=== PATIENT | female | born 1985 | race American Indian/Alaskan Native ===

== ENCOUNTER 2020-08-29 22:42 | Inpatient (IN) | payer OTHER ==
--- NOTE | 2020-08-29 22:50 | Event Note ---
ED Screening Note Date of service: 08/29/20 Time: 22:49 ED Screening Note: Patient complains of sudden onset of shortness of breath and chest pain with deep inhalation History of asthma, however states this feels different Denies history of DVT/PE, leg pain/swelling, recent long travel, hemoptysis, or hormone use Heart rate 114 This initial assessment/diagnostic orders/clinical plan/treatment(s) is/are subject to change based on patients health status, clinical progression and re-assessment by fellow clinical providers in the ED. Further treatment and workup at subsequent clinical providers discretion. Patient/guardian urged not to elope from the ED as their condition may be serious if not clinically assessed and managed. Initial orders include: Labs EKG Chest x-ray
--- NOTE | 2020-08-29 23:13 | XRay Report ---
CHEST 2 VIEWS INDICATION: shortness of breath, chest pain. COMPARISON: None FINDINGS: SUPPORT DEVICES: None. HEART: Within normal limits. LUNGS/PLEURA: Mild patchy multifocal airspace disease. Correlate for potential atypical etiology such as viral disease No pneumothorax. ADDITIONAL FINDINGS: None. IMPRESSION: 1. Pulmonary findings as above. Signer Name: Gunnar Jones MD Signed: 08/29/2020 11:08 PM Workstation Name: [id number]
[2020-08-30 00:02] LABS: Alanine Aminotransferase 51 units/L (7-56); Albumin 3.9 g/dL (3.9-5); Blood Urea Nitrogen 12 mg/dL (7-17); Calcium 9.1 mg/dL (8.4-10.2); Hemolysis Index 3
[2020-08-30 00:07] LABS: Basophils # (Auto) 0.2 K/mm3 (0.0-0.1); Eosinophils % (Auto) 0.4 % (0.0-4.3); Hematocrit 35.9 % (30.3-42.9); Hemoglobin 11.5 gm/dl (10.1-14.3); Mean Corpuscular HGB Conc 32 % (30-34); Monocytes # (Auto) 0.4 K/mm3 (0.0-0.8); Monocytes % (Auto) 7.1 % (0.0-7.3); Platelet Count 365 K/mm3 (140-440); Red Blood Count 5.42 M/mm3 (3.65-5.03); Red Cell Distribution Width 19.1 % (13.2-15.2)
[2020-08-30 00:10] LABS: Mean Corpuscular Volume 66 fl (79-97)
[2020-08-30 00:11] LABS: Lymphocytes # (Auto) 2.7 K/mm3 (1.2-5.4); Lymphocytes % (Auto) 44.7 % (13.4-35.0)
[2020-08-30 00:17] LABS: BUN/Creatinine Ratio 24
[2020-08-30] MEDS ORDERED: dexAMETHasone 20 MG/5 ML VIAL IV ONE (01:16)
[2020-08-30] MEDS ORDERED: cefTRIAXone/NS 1 GM/50 ML 1 GM/50 ML BAG IV ONE (01:17)
[2020-08-30] MEDS ORDERED: AZITHROMYCIN 500 MG in SODIUM CHLORIDE 0.9% 250ML 250 ML IV ONE (01:17)
--- NOTE | 2020-08-30 01:31 | Emergency Department Report ---
ED General Adult HPI - General Chief complaint: Dyspnea/Respdistress Stated complaint: SHORTNESS OF BREATH Time Seen by Provider: 08/29/20 22:48 Source: patient Mode of arrival: Ambulatory Limitations: No Limitations - History of Present Illness Initial comments: 35-year-old -[place] female patient with history of diabetes and asthma presents for sudden onset of shortness of breath starting last night and worsening today. She states this feels different from her normal asthma. She admits to a mild cough with mucus production, but denies any hemoptysis. She also complains of chest pain with deep inspiration. Patient denies any leg pain/swelling, recent long travel/surgeries, history of DVT/PE/cancer, or hormone use. No known recent sick contacts per patient - Related Data Allergies Allergy/AdvReac Type Severity Reaction Status Date / Time No Known Allergies Allergy Unverified 08/29/20 22:50 ED Review of Systems ROS: Stated complaint: SHORTNESS OF BREATH Other details as noted in HPI ED Past Medical Hx - Past Medical History Previous Medical History?: Yes Hx Diabetes: Yes Hx Arthritis: Yes - Social History Smoking Status: Never Smoker Substance Use Type: None ED Physical Exam - General Limitations: No Limitations ED Course Vital Signs 08/29/20 08/29/20 22:47 22:51 Temperature 99.4 F Pulse Rate 110 H Respiratory 20 Rate Blood Pressure 125/78 [Right] O2 Sat by Pulse 100 Oximetry ED Medical Decision Making - Lab Data Result diagrams: 08/29/20 23:13 08/29/20 23:13 - Radiology Data Radiology results: report reviewed CHEST 2 VIEWS INDICATION: shortness of breath, chest pain. COMPARISON: None FINDINGS: SUPPORT DEVICES: None. HEART: Within normal limits. LUNGS/PLEURA: Mild patchy multifocal airspace disease. Correlate for potential atypical etiology such as viral disease No pneumothorax. ADDITIONAL FINDINGS: None. IMPRESSION: 1. Pulmonary findings as above. - Medical Decision Making 35-year-old -[place] female patient with history of diabetes and asthma presents for sudden onset of shortness of breath starting last night and worsening today. She states this feels different from her normal asthma. She admits to a mild cough with mucus production, but denies any hemoptysis. She also complains of chest pain with deep inspiration. Patient denies any leg pain/swelling, recent long travel/surgeries, history of DVT/PE/cancer, or hormone use. No known recent sick contacts per patient Chest x-ray shows mild patchy multifocal airway disease that appears to be of viral etiology. White count is normal CBC. Patient is satting at 95% on room air, however with ambulation her saturation drops to 87% and her heart rate inc reases to [address] Elizabeth-recommends admission. Covid testing ordered. Patient to be admitted via Dr. Francois. Critical care attestation.: If time is entered above; I have spent that time in minutes in the direct care of this critically ill patient, excluding procedure time. ED Disposition Clinical Impression: Suspected COVID-19 virus infection, Hypoxia, Shortness of breath Disposition: OP ADMIT IP TO THIS HOSP Is pt being admited?: Yes Condition: Stable Referrals: EUGENIA CHILDS MD [Primary Care Provider] - 3-5 Days
[2020-08-30] MEDS ORDERED: dexAMETHasone 20 MG/5 ML VIAL ONE ×2 (03:41→08:59)
[2020-08-30 06:47] LABS: C-Reactive Protein 4.7 mg/dL (0.00-1.30)
--- NOTE | 2020-08-30 07:39 | History and Physical Report ---
History of Present Illness Date of examination: 08/30/20 Date of admission: 08/30/20 Chief complaint: Shortness of breath History of present illness: Patient is a 35-year-old -Finnish female patient with history of diabetes and asthma although has not been on any asthma medication due to no exacerbation years only takes Metformin at home she is also morbidly obese who presents following a 2-day history of intermittent cough with now worsening shortness of breath which started suddenly while at work. She works at [employer]. She states this feels different from her normal asthma. She admits to a mild cough with mucus production, but denies any hemoptysis. She also complains of chest pain with deep inspiration. She also reports difficulty with speech. Patient denies any leg pain/swelling, recent long travel/surgeries, history of DVT/PE/cancer, or hormone use. No known recent sick contacts per patient Chest x-ray shows mild patchy multifocal airway disease that appears to be of viral etiology. White count is normal CBC. Patient is satting at 95% on room air, however with ambulation her saturation drops to 87% and her heart rate increases to [address] Elizabeth-recommends admission. Covid testing ordered. Past History Past Medical History: diabetes, other (Patient's respiratory status has stabilized while in the department and is appropriate for outpatient work up.Exam and work up not consistent w/ impending respiratory failure or cardiovascular collapse.) Past Surgical History: (X3) Social history: no significant social history, lives with family, full code. denies: smoking, alcohol abuse, prescription drug abuse, IV drug use Family history: no significant family history Medications and Allergies Allergies Allergy/AdvReac Type Severity Reaction Status Date / Time No Known Allergies Allergy Unverified 08/29/20 22:50 Review of Systems All systems: negative Constitutional: fatigue, no weight loss, no weight gain, no fever, no weakness, no malaise, no lethargy Cardiovascular: shortness of breath, no chest pain, no orthopnea, no palpitatio ns, no rapid/irregular heart beat, no edema, no syncope, no lightheadedness Respiratory: cough with sputum, shortness of breath, dyspnea on exertion, no congestion, no wheezing, no pleurisy, no pain, no pain on inspiration, no sleep apnea, no respiratory infections Exam - Physical Exam Narrative exam: VITAL SIGNS: Reviewed. GENERAL: The patient appears normally developed, morbidly obese vital signs as documented. HEAD: No signs of head trauma. EYES: Pupils are equal. Extraocular motions intact. EARS: Hearing grossly intact. MOUTH: Oropharynx is normal. NECK: No adenopathy, no JVD. CHEST: Chest with diminished breath sounds bilaterally. No wheezes, rales, or rhonchi. CARDIAC: Regular rate and rhythm. S1 and S2, without murmurs, gallops, or rubs. VASCULAR: No Edema. Peripheral pulses normal and equal in all extremities. ABDOMEN: Soft, non tender and non distended. No rebound or guarding, and no masses palpated. Bowel Sounds normal. MUSCULOSKELETAL: Good range of motion of all major joints. Extremities without clubbing, cyanosis or edema. NEUROLOGIC EXAM: Alert and oriented x 3 No focal sensory or strength deficits. Speech normal. Follows commands. PSYCHIATRIC: Mood normal. SKIN: detail exam as documented in skin assessment - Constitutional Vitals: Temp Pulse Resp BP Pulse Ox 99.4 F 110 H 20 125/78 100 08/29/20 22:47 08/29/20 22:47 08/29/20 22:47 08/29/20 22:51 08/29/20 22:47 HEART Score - HEART Score Troponin: Troponin T < 0.010 ng/mL (0.00-0.029) 08/29/20 23:13 Results - Labs CBC & Chem 7: 08/29/20 23:13 08/29/20 23:13 Labs: Laboratory Last Values WBC 6.1 K/mm3 (4.5-11.0) 08/29/20 23:13 RBC 5.42 M/mm3 (3.65-5.03) H 08/29/20 23:13 Hgb 11.5 gm/dl (10.1-14.3) 08/29/20 23:13 Hct 35.9 % (30.3-42.9) 08/29/20 23:13 MCV 66 fl (79-97) L 08/29/20 23:13 MCH 21 pg (28-32) L 08/29/20 23:13 MCHC 32 % (30-34) 08/29/20 23:13 RDW 19.1 % (13.2-15.2) H 08/29/20 23:13 Plt Count 365 K/mm3 (140-440) 08/29/20 23:13 Lymph % (Auto) 44.7 % (13.4-35.0) H 08/29/20 23:13 Falls % (Auto) 7.1 % (0.0-7.3) 08/29/20 23:13 Eos % (Auto) 0.4 % (0.0-4.3) 08/29/20 23:13 Baso % (Auto) 3.0 % (0.0-1.8) H 08/29/20 23:13 Lymph # (Auto) 2.7 K/mm3 (1.2-5.4) 08/29/20 23:13 Falls # (Auto) 0.4 K/mm3 (0.0-0.8) 08/29/20 23:13 Eos # (Auto) 0.0 K/mm3 (0.0-0.4) 08/29/20 23:13 Baso # (Auto) 0.2 K/mm3 (0.0-0.1) H 08/29/20 23:13 Seg Neutrophils % 44.8 % (40.0-70.0) 08/29/20 23:13 Seg Neutrophils # 2.7 K/mm3 (1.8-7.7) 08/29/20 23:13 D-Dimer 310.03 ng/mlDDU (0-234) H 08/30/20 06:06 Sodium 139 mmol/L (137-145) 08/29/20 23:13 Potassium 4.5 mmol/L (3.6-5.0) 08/29/20 23:13 Chloride 98.6 mmol/L (98-107) 08/29/20 23:13 Carbon Dioxide 27 mmol/L (22-30) 08/29/20 23:13 Anion Gap 18 mmol/L 08/29/20 23:13 BUN 12 mg/dL (7-17) 08/29/20 23:13 Creatinine 0.5 mg/dL (0.6-1.2) L 08/29/20 23:13 Estimated GFR > 60 ml/min 08/29/20 23:13 BUN/Creatinine Ratio 24 % 08/29/20 23:13 Glucose 104 mg/dL (65-100) H 08/29/20 23:13 Calcium 9.1 mg/dL (8.4-10.2) 08/29/20 23:13 Ferritin 69.1 ng/mL (10.0-200.0) 08/30/20 06:06 Total Bilirubin 0.20 mg/dL (0.1-1.2) 08/29/20 23:13 AST 84 units/L (5-40) H 08/29/20 23:13 ALT 51 units/L (7-56) 08/29/20 23:13 Alkaline Phosphatase 113 units/L (35-129) 08/29/20 23:13 Lactate Dehydrogenase 237 units/L (91-180) H 08/30/20 06:06 Troponin T < 0.010 ng/mL (0.00-0.029) 08/29/20 23:13 C-Reactive Protein 4.70 mg/dL (0.00-1.30) H 08/30/20 06:06 NT-Pro-B Natriuret Pep 5.98 pg/mL (0-450) 08/29/20 23:13 Total Protein 8.0 g/dL (6.3-8.2) 08/29/20 23:13 Albumin 3.9 g/dL (3.9-5) 08/29/20 23:13 Albumin/Globulin Ratio 1.0 % 08/29/20 23:13 HCG, Qual Negative (Negative) 08/29/20 23:13 Assessment and Plan Assessment and plan: Patient is a 35-year-old -F[place]ish female patient with history of diabetes and asthma although has not been on any asthma medication due to no exacerbation years only takes Metformin at home she is also morbidly obese who presents following a 2-day history of intermittent cough with now worsening shortness of breath which started suddenly while at work. She works at [employer]. She states this feels different from her normal asthma. She admits to a mild cough with mucus production, but denies any hemoptysis. She also complains of chest pain with deep inspiration. She also reports difficulty with speech. Pat ient denies any leg pain/swelling, recent long travel/surgeries, history of DVT/PE/cancer, or hormone use. No known recent sick contacts per patient Chest x-ray shows mild patchy multifocal airway disease that appears to be of viral etiology. White count is normal CBC. Patient is satting at 95% on room air, however with ambulation her saturation drops to 87% and her heart rate increases to [address]. [address] Elizabeth-recommends admission. Covid testing ordered. CXR: SUPPORT DEVICES: None. HEART: Within normal limits. LUNGS/PLEURA: Mild patchy multifocal airspace disease. Correlate for potential atypical etiology such as viral disease No pneumothorax. ADDITIONAL FINDINGS: None. IMPRESSION: 1. Pulmonary findings as above. Acute respiratory failure likely with hypoxia secondary to acute bronchitis Suspected COVID-19 virus infection, Atypical pneumonia possible viral Elevated D-dimer Morbidly obese Plan Admit to [facility] floor Oxygen per protocol Duo nebs for asthma Patient has received some steroid today Rule out COVID-19 with testing Weight loss counseling greater than 15 minutes patient verbalized understanding Outpatient obesity hypoventilation syndrome evaluation with sleep study ABG Inhaled corticosteroids and long-acting nebs ID consultation If no improvement consider pulmonary consultation Daily oxygen saturation level on room air. Plan of care discussed with the patient in detail Advance Directives: Yes Plan of care discussed with patient/family: Yes
[2020-08-30] MEDS ORDERED: ACETAMINOPHEN 325 MG TAB PO PRN (07:57)
[2020-08-30] MEDS ORDERED: NALOXONE 0.4 MG/1 ML INJ IV PRN (07:57)
[2020-08-30] MEDS ORDERED: ONDANSETRON 4 MG/2 ML INJ IV PRN (07:57)
[2020-08-30] MEDS ORDERED: DEXTROSE 50% IN WATER (25GM) 50 ML SYRINGE IV PRN (07:57)
[2020-08-30] MEDS ORDERED: MORPHINE 2 MG/1 ML INJ IV PRN (07:57)
[2020-08-30] MEDS ORDERED: ALBUTEROL 2.5 MG/3 ML NEBU IH PRN (07:57)
[2020-08-30] MEDS ORDERED: AZITHROMYCIN 500 MG in SODIUM CHLORIDE 0.9% 250ML 250 ML IV SCH (10:00)
[2020-08-30] MEDS ORDERED: cefTRIAXone/NS 2 GM/100 ML 2 GM/100 ML BAG IV SCH (10:00)
[2020-08-30] MEDS ORDERED: BUDESONIDE 0.5 MG/2 ML NEBU IH ONE ×2 (10:46→20:41)
[2020-08-30] MEDS ORDERED: ARFORMOTEROL 15 MCG/2 ML NEBU IH ONE ×2 (10:46→20:41)
[2020-08-30] MEDS: ZINC SULFATE 220 MG CAP PO SCH (10:55)
[2020-08-30] MEDS: SENNOSIDES 8.6 MG TAB PO SCH (10:55)
[2020-08-30] MEDS: ASCORBIC ACID 500 MG TAB PO SCH (10:55)
[2020-08-30] MEDS: BUDESONIDE 0.5 MG/2 ML NEBU IH SCH ×2 (11:46→22:35)
[2020-08-30] MEDS: ARFORMOTEROL 15 MCG/2 ML NEBU IH SCH ×2 (11:46→22:35)
[2020-08-30] MEDS: IPRATROPIUM/ALBUTEROL SULFATE 3 ML AMPUL.NEB IH SCH ×3 (11:50→22:35)
[2020-08-30 13:07] LABS: ABG Base Excess -1.2 mmol/L (-2.0-3.0); ABG HCO3 23.4 mmol/L (20.0-26.0); ABG Methemoglobin 0.5 % (0.0-1.5); ABG PCO2 38.7 mm Hg; ABG PH 7.399 pH Units (7.350-7.450); ABG PO2 90.2 mm Hg (80.0-90.0)
[2020-08-30] MEDS ORDERED: HEPARIN 5,000 UNIT/1 ML VIAL ONE ×2 (16:08→23:30)
[2020-08-30] MEDS: HEPARIN 5,000 UNIT/1 ML VIAL SUB-Q SCH ×2 (16:14→23:40)
--- NOTE | 2020-08-30 16:27 | Consultation ---
History of Present Illness - Reason for Consult Consult date: 08/30/20 - History of Present Illness 35-year-old female past medical history diabetes,, asthma morbid obesity presents to the hospital complaining of cough and shortness of breath. She notes this began approximately 2 days prior to admission and has been progressively worse since then. She complains of a pleuritic pain on deep inspiration. Otherwise denies any other symptoms. Afebrile since admission with a normal white count. Currently seeing ceftriaxone azithromycin. Procalcitonin is normal. Blood cultures currently pending, COVID-19 testing is positive. She is on 2 L nasal cannula. Imaging personally viewed: Chest x-ray: Multifocal airspace disease. Review of Systems: Bold if positive, otherwise negative General: fevers, chills, rigors HEENT: visual disturbance, diplopia, eye pain Respiratory: cough, sputum, hemoptysis, shortness of breath Cardiovascular: chest pain, syncope Gastrointestinal: nausea, vomiting, diarrhea, abdominal pain Genitourinary: dysuria, hematuria, flank pain Musculoskeletal: neck pain, back pain, joint pain, edema Neurologic: headaches, seizures Hematologic: easy bruising or bleeding Endocrine: night sweats, acute weight loss Skin: rash, jaundice, redness Psychiatric: suicidal, homicidal ideation Past History Past Medical History: diabetes, other (Patient's respiratory status has stab ilized while in the department and is appropriate for outpatient work up.Exam and work up not consistent w/ impending respiratory failure or cardiovascular collapse.) Past Surgical History: (X3) Social history: no significant social history, lives with family, full code. denies: smoking, alcohol abuse, prescription drug abuse, IV drug use Family history: no significant family history Medications and Allergies Allergies Allergy/AdvReac Type Severity Reaction Status Date / Time No Known Allergies Allergy Unverified 08/29/20 22:50 Active Meds: Active Medications Acetaminophen (Tylenol) 650 mg PO Q4H PRN PRN Reason: Pain MILD(1-3)/Fever >100.5/WARREN Albuterol (Proventil) 2.5 mg IH Q4HRT PRN PRN Reason: Shortness Of Breath Albuterol/Ipratropium (Duoneb *Not For Prn Use*) 1 ampul IH Q6HRT [facility] Last Admin: 08/30/20 11:50 Dose: Not Given Documented by: Arformoterol Tartrate (Brovana Nebu) 15 mcg IH Q12HRT [facility] Last Admin: 08/30/20 11:46 Dose: 15 mcg Documented by: Ascorbic Acid (Vitamin C) 1,000 mg PO BID [facility] Last Admin: 08/30/20 10:55 Dose: 1,000 mg Documented by: Budesonide (Pulmicort) 0.5 mg IH Q12HRT [facility] Last Admin: 08/30/20 11:46 Dose: 0.5 mg Documented by: Dexamethasone (Decadron) 6 mg PO DAILY [facility] Dextrose (D50w (25gm) Syringe) 50 ml IV Q30MIN PRN; Protocol PRN Reason: Hypoglycemia Heparin Sodium (Porcine) (Heparin) 5,000 unit SUB-Q Q8HR [facility] Last Admin: 08/30/20 16:14 Dose: 5,000 unit Documented by: Ceftriaxone Sodium (Rocephin/Ns 2 Gm/100 Ml) 2 gm in 100 mls @ 200 mls/hr IV Q24HR [facility]; Protocol Last Admin: 08/30/20 15:29 Dose: Not Given Documented by: Azithromycin 500 mg/ Sodium (Chloride) 250 mls @ 250 mls/hr IV Q24HR [facility]; Protocol Last Admin: 08/30/20 11:38 Dose: Not Given Documented by: Morphine Sulfate (Morphine) 2 mg IV Q4H PRN PRN Reason: Pain, Moderate (4-6) Naloxone HCl (Naloxone) 0.1 mg IV Q2MIN PRN PRN Reason: Res Rate </= 8 or 02 SAT < 92% Ondansetron HCl (Zofran) 4 mg IV Q8H PRN PRN Reason: Nausea And Vomiting Senna (Senokot) 8.6 mg PO Q12HR [facility] Last Admin: 08/30/20 10:55 Dose: 8.6 mg Documented by: Sodium Chloride (Sodium Chloride Flush Syringe 10 Ml) 10 ml IV BID [facility] Last Admin: 08/30/20 10:58 Dose: 10 ml Documented by: Sodium Chloride (Sodium Chloride Flush Syringe 10 Ml) 10 ml IV PRN PRN PRN Reason: LINE FLUSH Zinc Sulfate (Zinc Sulfate) 220 mg PO QDAY [facility] Last Admin: 08/30/20 10:55 Dose: 220 mg Documented by: Physical Examination - Physical Exam Narrative exam: Physical exam deferred due to PPE conservation strategy. Please refer to primary team's note. - Constitutional Vitals: Vital Signs Temp Pulse Resp BP Pulse Ox 98.8 F 96 H 16 126/69 95 08/30/20 11:46 08/30/20 14:46 08/30/20 15:16 08/30/20 15:16 08/30/20 14:46 Temperature -Last 24 Hours Temperature 98.8 F Temperature 99.4 F Results - Labs CBC & Chem 7: 08/29/20 23:13 08/29/20 23:13 Labs: Abnormal lab results 08/29/20 08/29/20 08/30/20 Range/Units 23:13 23:13 06:06 RBC 5.42 H (3.65-5.03) M/mm3 MCV 66 L (79-97) fl MCH 21 L (28-32) pg RDW 19.1 H (13.2-15.2) % Lymph % (Auto) 44.7 H (13.4-35.0) % Baso % (Auto) 3.0 H (0.0-1.8) % Baso # (Auto) 0.2 H (0.0-0.1) K/mm3 D-Dimer 310.03 H (0-234) ng/mlDDU ABG pO2 (80.0-90.0) mm Hg Creatinine 0.5 L (0.6-1.2) mg/dL Glucose 104 H (65-100) mg/dL POC Glucose (70-105) mg/dL Hemoglobin A1c (4-6) % AST 84 H (5-40) units/L Lactate Dehydrogenase (91-180) units/L C-Reactive Protein (0.00-1.30) mg/dL Coronavirus (PCR) (Negative) 08/30/20 08/30/20 08/30/20 Range/Units 06:06 08:55 10:22 RBC (3.65-5.03) M/mm3 MCV (79-97) fl MCH (28-32) pg RDW (13.2-15.2) % Lymph % (Auto) (13.4-35.0) % Baso % (Auto) (0.0-1.8) % Baso # (Auto) (0.0-0.1) K/mm3 D-Dimer (0-234) ng/mlDDU ABG pO2 (80.0-90.0) mm Hg Creatinine (0.6-1.2) mg/dL Glucose (65-100) mg/dL POC Glucose (70-105) mg/dL Hemoglobin A1c 6.6 H (4-6) % AST (5-40) units/L Lactate Dehydrogenase 237 H (91-180) units/L C-Reactive Protein 4.70 H (0.00-1.30) mg/dL Coronavirus (PCR) Positive A (Negative) 08/30/20 08/30/20 08/30/20 Range/Units 11:05 12:38 Unknown RBC (3.65-5.03) M/mm3 MCV (79-97) fl MCH (28-32) pg RDW (13.2-15.2) % Lymph % (Auto) (13.4-35.0) % Baso % (Auto) (0.0-1.8) % Baso # (Auto) (0.0-0.1) K/mm3 D-Dimer 306.07 H (0-234) ng/mlDDU ABG pO2 90.2 H (80.0-90.0) mm Hg Creatinine (0.6-1.2) mg/dL Glucose (65-100) mg/dL POC Glucose 108 H (70-105) mg/dL Hemoglobin A1c (4-6) % AST (5-40) units/L Lactate Dehydrogenase (91-180) units/L C-Reactive Protein (0.00-1.30) mg/dL Coronavirus (PCR) (Negative) Assessment and Plan Cultures: Blood culture 08/30/2020 pending COVID-19 positive A/P: 35-year-old female past medical history diabetes, morbid obesity admitted with COVID-19 pneumonia. #COVID-19 pneumonia: 3 days of symptoms, currently a remdesivir candidate. #Acute hypoxemic respiratory failure: Likely secondary to COVID-19 infection. Currently on 2 L nasal cannula #Diabetes: tight glycemic control for best outcomes. #Morbid obesity: Associated with worse COVID-19 outcomes. Recs: -Continue dexamethasone for 10 days -Stop antibiotics on the basis of normal procalcitonin -Start Remdesivir 200 mg IV q day x 1 followed by 100 mg IV q day x 4 days. Follow renal and hepatic function while receiving -Anticoagulation per hospital protocol -Proning as able. Thank you for the consult, we will continue to follow. Margot Salmon MD [facility] ([facility] O: [phone] F: [phone]
--- NOTE | 2020-08-30 17:32 | Cat Scan Report ---
CTA CHEST WITH IV CONTRAST INDICATION: Pulmonary embolism. TECHNIQUE: Axial CT images were obtained through the chest after injection of 100 cc Omnipaque 350 IV contrast. 3 plane MIP reconstructions were produced. All CT scans at this location are performed using CT dose reduction for ALARA by means of automated exposure control. COMPARISON: 2 views of the chest from 08/29/2020. FINDINGS: Motion artifact limits this exam. PULMONARY ARTERIES: Good opacification of the pulmonary arteries without distinct central thromboembo li. AORTA AND ARTERIES: No significant abnormality. HEART: No significant abnormality. MEDIASTINUM: No significant abnormality. LUNGS: Patchy bilateral groundglass opacities/consolidations are noted without a suspicious nodule or mass. No pneumothorax or pleural effusion. ADDITIONAL FINDINGS: None. UPPER ABDOMEN: No acute findings. There is generalized steatosis. BONES: No acute abnormality. Mild thoracic spondylosis. IMPRESSION: 1. No CT evidence for pulmonary embolism. 2. Possible bilateral pneumonia versus atelectasis. Please correlate with the clinical findings. Cont inued radiographic follow-up to resolution is recommended. Signer Name: Alexi Potter MD Signed: 08/30/2020 5:27 PM Workstation Name: [id number]
[2020-08-30] MEDS ORDERED: REMDESIVIR 100 MG VIAL IV ONE (18:00)
[2020-08-30] MEDS ORDERED: REMDESIVIR 200 MG in SODIUM CHLORIDE 0.9% 250ML 250 ML IV ONE (18:00)
[2020-08-30] MEDS ORDERED: SODIUM CHLORIDE 0.9% 50 ML ONE (19:47)
[2020-08-30] MEDS ORDERED: IPRATROPIUM/ALBUTEROL SULFATE 3 ML AMPUL.NEB IH ONE (20:41)
[2020-08-30] MEDS: SODIUM CHLORIDE 0.9% 50 ML IVPB IV SCH (20:49)
[2020-08-31] MEDS: ASCORBIC ACID 500 MG TAB PO SCH ×3 (01:26→23:15)
[2020-08-31] MEDS: SENNOSIDES 8.6 MG TAB PO SCH ×3 (01:26→23:15)
[2020-08-31] MEDS: IPRATROPIUM/ALBUTEROL SULFATE 3 ML AMPUL.NEB IH SCH ×6 (03:25→21:30)
[2020-08-31 05:27] LABS: Basophils % (Auto) 0.5 % (0.0-1.8); Hematocrit 34.2 % (30.3-42.9); Hemoglobin 11.1 gm/dl (10.1-14.3); Lymphocytes # (Auto) 1.8 K/mm3 (1.2-5.4); Lymphocytes % (Auto) 50.5 % (13.4-35.0); Mean Corpuscular HGB Conc 33 % (30-34); Monocytes # (Auto) 0.4 K/mm3 (0.0-0.8); Monocytes % (Auto) 11.7 % (0.0-7.3); Platelet Count 333 K/mm3 (140-440); Red Blood Count 5.07 M/mm3 (3.65-5.03); Red Cell Distribution Width 19.6 % (13.2-15.2)
[2020-08-31 05:30] LABS: Mean Corpuscular Volume 68 fl (79-97)
[2020-08-31 06:01] LABS: ABG Base Excess 0.1 mmol/L (-2.0-3.0); ABG HCO3 25.2 mmol/L (20.0-26.0); ABG Methemoglobin 0.5 % (0.0-1.5); ABG Oxygen Saturation 96.5 % (95.0-99.0); ABG PCO2 42.5 mm Hg; ABG PH 7.39 pH Units (7.350-7.450); ABG PO2 81.9 mm Hg (80.0-90.0)
[2020-08-31] MEDS ORDERED: HEPARIN 5,000 UNIT/1 ML VIAL ONE ×2 (06:01→15:05)
[2020-08-31] MEDS: HEPARIN 5,000 UNIT/1 ML VIAL SUB-Q SCH ×3 (06:20→23:16)
[2020-08-31 07:05] LABS: BUN/Creatinine Ratio 20; Blood Urea Nitrogen 8 mg/dL (7-17); Hemolysis Index 28
[2020-08-31] MEDS ORDERED: IPRATROPIUM/ALBUTEROL SULFATE 3 ML AMPUL.NEB IH ONE (08:35)
[2020-08-31] MEDS ORDERED: BUDESONIDE 0.5 MG/2 ML NEBU IH ONE (08:35)
[2020-08-31] MEDS ORDERED: ARFORMOTEROL 15 MCG/2 ML NEBU IH ONE (08:35)
[2020-08-31] MEDS: ARFORMOTEROL 15 MCG/2 ML NEBU IH SCH ×3 (08:54→21:30)
[2020-08-31] MEDS: BUDESONIDE 0.5 MG/2 ML NEBU IH SCH ×3 (08:55→21:30)
[2020-08-31] MEDS ORDERED: DEXAMETHASONE 4 MG TAB ONE (09:24)
[2020-08-31] MEDS: DEXAMETHASONE 4 MG TAB PO SCH (10:32)
[2020-08-31] MEDS: ZINC SULFATE 220 MG CAP PO SCH (10:33)
--- NOTE | 2020-08-31 11:02 | Progress Note ---
Assessment and Plan Acute respiratory failure with hypoxia - secondary to COVID-19 pneumonia - Chest x-ray: Mild patchy multifocal airspace disease -Positive for COVID-19, started definite treatment for COVID-19, consulted ID -Monitor oxygen saturation and continue supplemental O2 to keep O2 sat greater than 94% COVID-19 virus infection, Atypical pneumonia with COVID-19 -Started on dexamethasone 6 mg p.o. for 10 days -Ordered for remdesivir to total 5 days course -ID consulted, continue to follow inflammatory markers Diabetes mellitus type 2 -Consistent carb diet and sliding scale of insulin Morbidly obese -Dietary and exercise recommendation when medically stable DVT prophylaxis, per Covid protocol 08/31: Patient is Covid positive for Covid, ID consulted -started on dexamethasone and remdesivir. Continue to follow inflammatory markers. Subjective Date of service: 08/31/20 Interval history: Patient seen and examined. Medical records and medication list reviewed. No acute event overnight noted by the RN. Patient complains of difficulty breathing on exertion and cough. Patient is tolerating diet. Discussed plan of care at bedside with patient. Objective - Exam Narrative Exam: GENERAL: well-developed morbidly obese -[place] female lying on bed appeared to be in no discomfort. HEENT: Normocephalic. Atraumatic. No conjunctival congestion or icterus. Pat ient has moist mucous membranes. NECK: Supple. Trachea midline. CHEST/LUNGS: Diminished breath sound auscultated bilaterally, breathing nonlabored. HEART/CARDIOVASCULAR: Regular in rate and rhythm. S1 and S2 positive. ABDOMEN: Abdomen is soft, nontender. Patient has normal bowel sounds. SKIN: There is no rash. Warm and dry. NEURO: No focal motor deficit. Follows command. MUSCULOSKELETAL: No joint effusion or tenderness. EXTRIMITY: No edema, no cyanosis or clubbing. PSYCH: Cooperative. - Constitutional Vitals: Vital Signs - 12hr 08/30/20 08/31/20 08/31/20 23:00 00:01 01:01 Temperature Pulse Rate 86 86 79 Pulse Rate [ Anterior Bilateral Throughout] Pulse Rate [ Posterior Bilateral Bases ] Respiratory 20 20 17 Rate Respiratory Rate [Anterior Bilateral Throughout] Respiratory Rate [Posterior Bilateral Bases] Blood Pressure 142/91 O2 Sat by Pulse Oximetry 08/31/20 08/31/20 08/31/20 01:42 02:00 03:00 Temperature Pulse Rate 82 81 Pulse Rate [ Anterior Bilateral Throughout] Pulse Rate [ Posterior Bilateral Bases ] Respiratory 18 19 15 Rate Respiratory Rate [Anterior Bilateral Throughout] Respiratory Rate [Posterior Bilateral Bases] Blood Pressure 134/83 139/89 O2 Sat by Pulse 96 Oximetry 08/31/20 08/31/20 08/31/20 04:00 05:00 06:00 Temperature Pulse Rate 75 Pulse Rate [ Anterior Bilateral Throughout] Pulse Rate [ Posterior Bilateral Bases ] Respiratory 15 21 12 Rate Respiratory Rate [Anterior Bilateral Throughout] Respiratory Rate [Posterior Bilateral Bases] Blood Pressure 133/71 132/82 135/84 O2 Sat by Pulse 91 93 Oximetry 08/31/20 08/31/20 08/31/20 06:27 07:01 08:00 Temperature 98.2 F Pulse Rate 76 77 Pulse Rate [ Anterior Bilateral Throughout] Pulse Rate [ Posterior Bilateral Bases ] Respiratory 18 15 Rate Respiratory Rate [Anterior Bilateral Throughout] Respiratory Rate [Posterior Bilateral Bases] Blood Pressure 130/90 131/89 O2 Sat by Pulse 97 94 Oximetry 08/31/20 08/31/20 08:42 08:45 Temperature Pulse Rate Pulse Rate [ 76 Anterior Bilateral Throughout] Pulse Rate [ 81 Posterior Bilateral Bases ] Respiratory Rate Respiratory 21 Rate [Anterior Bilateral Throughout] Respiratory 17 Rate [Posterior Bilateral Bases] Blood Pressure O2 Sat by Pulse 97 Oximetry - Labs CBC & Chem 7: 08/31/20 04:46 09/02/20 10:54 Labs: Abnormal lab results 08/30/20 08/30/20 08/30/20 Range/Units 08:55 10:22 11:05 WBC (4.5-11.0) K/mm3 RBC (3.65-5.03) M/mm3 MCV (79-97) fl MCH (28-32) pg RDW (13.2-15.2) % Lymph % (Auto) (13.4-35.0) % [place] % (Auto) (0.0-7.3) % Seg Neutrophils % (40.0-70.0) % Seg Neutrophils # (1.8-7.7) K/mm3 ABG pO2 (80.0-90.0) mm Hg ABG Hemoglobin (12.0-16.0) gm/dl Oxyhemoglobin (95.0-99.0) % Creatinine (0.6-1.2) mg/dL Glucose (65-100) mg/dL POC Glucose 108 H (70-105) mg/dL Hemoglobin A1c 6.6 H (4-6) % Coronavirus (PCR) Positive A (Negative) 08/30/20 08/31/20 08/31/20 Range/Units 12:38 01:25 04:46 WBC 3.5 L (4.5-11.0) K/mm3 RBC 5.07 H (3.65-5.03) M/mm3 MCV 68 L (79-97) fl MCH 22 L (28-32) pg RDW 19.6 H (13.2-15.2) % Lymph % (Auto) 50.5 H (13.4-35.0) % [place] % (Auto) 11.7 H (0.0-7.3) % Seg Neutrophils % 37.3 L (40.0-70.0) % Seg Neutrophils # 1.3 L (1.8-7.7) K/mm3 ABG pO2 90.2 H (80.0-90.0) mm Hg ABG Hemoglobin (12.0-16.0) gm/dl Oxyhemoglobin (95.0-99.0) % Creatinine (0.6-1.2) mg/dL Glucose (65-100) mg/dL POC Glucose 115 H (70-105) mg/dL Hemoglobin A1c (4-6) % Coronavirus (PCR) (Negative) 08/31/20 08/31/20 Range/Units 04:46 05:40 WBC (4.5-11.0) K/mm3 RBC (3.65-5.03) M/mm3 MCV (79-97) fl MCH (28-32) pg RDW (13.2-15.2) % Lymph % (Auto) (13.4-35.0) % [place] % (Auto) (0.0-7.3) % Seg Neutrophils % (40.0-70.0) % Seg Neutrophils # (1.8-7.7) K/mm3 ABG pO2 (80.0-90.0) mm Hg ABG Hemoglobin 11.1 L (12.0-16.0) gm/dl Oxyhemoglobin 94.8 L (95.0-99.0) % Creatinine 0.4 L (0.6-1.2) mg/dL Glucose 125 H (65-100) mg/dL POC Glucose (70-105) mg/dL Hemoglobin A1c (4-6) % Coronavirus (PCR) (Negative) HEART Score - HEART Score Troponin: Troponin T < 0.010 ng/mL (0.00-0.029) 08/29/20 23:13
--- NOTE | 2020-08-31 12:43 | Progress Note ---
Assessment and Plan Cultures: Blood culture 08/30/2020 pending COVID-19 positive A/P: 35-year-old female past medical history diabetes, morbid obesity admitted with COVID-19 pneumonia. #COVID-19 pneumonia: 3 days of symptoms, currently a remdesivir candidate. #Acute hypoxemic respiratory failure: Likely secondary to COVID-19 infection. Currently on 2 L nasal cannula #Diabetes: tight glycemic control for best outcomes. #Morbid obesity: Associated with worse COVID-19 outcomes. Recs: -Continue dexamethasone for 10 days -Start Remdesivir 200 mg IV q day x 1 followed by 100 mg IV q day x 4 days. Follow renal and hepatic function while receiving. Day 2 of 5 -Anticoagulation per hospital protocol -Proning as able. Thank you for the consult, we will continue to follow. Margot Salmon MD [facility] ([facility]) O: [phone] F: [phone] Subjective Date of service: 08/31/20 Interval history: Afebrile, mild leukopenia. Due to nasal cannula. Objective - Exam Narrative Exam: Physical exam deferred due to PPE conservation strategy. Please refer to primary team's note. - Constitutional Vitals: Vital Signs Temp Pulse Resp BP Pulse Ox 98.2 F 81 17 131/89 97 08/31/20 06:27 08/31/20 08:42 08/31/20 08:42 08/31/20 08:00 08/31/20 08:45 Temperature -Last 24 Hours Temperature 98.2 F - Labs CBC & Chem 7: 08/31/20 04:46 08/31/20 04:46 Labs: Abnormal lab results 08/30/20 08/30/20 08/31/20 Range/Units 08:55 12:38 01:25 WBC (4.5-11.0) K/mm3 RBC (3.65-5.03) M/mm3 MCV (79-97) fl MCH (28-32) pg RDW (13.2-15.2) % Lymph % (Auto) (13.4-35.0) % [place] % (Auto) (0.0-7.3) % Seg Neutrophils % (40.0-70.0) % Seg Neutrophils # (1.8-7.7) K/mm3 ABG pO2 90.2 H (80.0-90.0) mm Hg ABG Hemoglobin (12.0-16.0) gm/dl Oxyhemoglobin (95.0-99.0) % Creatinine (0.6-1.2) mg/dL Glucose (65-100) mg/dL POC Glucose 115 H (70-105) mg/dL Coronavirus (PCR) Positive A (Negative) 08/31/20 08/31/20 08/31/20 Range/Units 04:46 04:46 05:40 WBC 3.5 L (4.5-11.0) K/mm3 RBC 5.07 H (3.65-5.03) M/mm3 MCV 68 L (79-97) fl MCH 22 L (28-32) pg RDW 19.6 H (13.2-15.2) % Lymph % (Auto) 50.5 H (13.4-35.0) % [place] % (Auto) 11.7 H (0.0-7.3) % Seg Neutrophils % 37.3 L (40.0-70.0) % Seg Neutrophils # 1.3 L (1.8-7.7) K/mm3 ABG pO2 (80.0-90.0) mm Hg ABG Hemoglobin 11.1 L (12.0-16.0) gm/dl Oxyhemoglobin 94.8 L (95.0-99.0) % Creatinine 0.4 L (0.6-1.2) mg/dL Glucose 125 H (65-100) mg/dL POC Glucose (70-105) mg/dL Coronavirus (PCR) (Negative)
[2020-08-31] MEDS: REMDESIVIR 100 MG in SODIUM CHLORIDE 0.9% 250ML 250 ML IV SCH (23:14)
[2020-08-31] MEDS: SODIUM CHLORIDE 0.9% 50 ML IVPB IV SCH (23:15)
[2020-09-01] MEDS: IPRATROPIUM/ALBUTEROL SULFATE 3 ML AMPUL.NEB IH SCH ×4 (02:57→20:51)
[2020-09-01] MEDS: HEPARIN 5,000 UNIT/1 ML VIAL SUB-Q SCH ×3 (05:30→22:22)
[2020-09-01] MEDS: INSULIN LISPRO 100 UNIT/ML VIAL 3 mL SUB-Q SCH ×4 (07:30→22:22)
[2020-09-01] MEDS: ARFORMOTEROL 15 MCG/2 ML NEBU IH SCH ×2 (09:12→20:51)
[2020-09-01] MEDS: BUDESONIDE 0.5 MG/2 ML NEBU IH SCH ×2 (09:12→20:52)
[2020-09-01] MEDS: ASCORBIC ACID 500 MG TAB PO SCH ×2 (11:59→22:22)
[2020-09-01] MEDS: ZINC SULFATE 220 MG CAP PO SCH (11:59)
[2020-09-01] MEDS: SENNOSIDES 8.6 MG TAB PO SCH ×2 (11:59→22:22)
[2020-09-01] MEDS: DEXAMETHASONE 4 MG TAB PO SCH (11:59)
--- NOTE | 2020-09-01 16:37 | Progress Note ---
Assessment and Plan Cultures: Blood culture 08/30/2020 pending COVID-19 positive A/P: 35-year-old female past medical history diabetes, morbid obesity admitted with COVID-19 pneumonia. #COVID-19 pneumonia: 3 days of symptoms, currently a remdesivir candidate. #Acute hypoxemic respiratory failure: Likely secondary to COVID-19 infection. Currently on 2 L nasal cannula #Diabetes: tight glycemic control for best outcomes. #Morbid obesity: Associated with worse COVID-19 outcomes. Recs: -Continue dexamethasone for 10 days -Start Remdesivir 200 mg IV q day x 1 followed by 100 mg IV q day x 4 days. Follow renal and hepatic function while receiving. Day 3 of 5 -No need to stay to complete 5-day course of remdesivir if improved, okay to discharge whenever stable from a respiratory standpoint. -Anticoagulation per hospital protocol -Proning as able. Thank you for the consult, we will continue to follow. Margot Salmon MD [facility] ([facility]) O: [phone] F: [phone] Subjective Date of service: 09/01/20 Interval history: Afebrile, no acute changes. Currently on 2 L nasal cannula. Objective - Exam Narrative Exam: Physical exam deferred due to PPE conservation strategy. Please refer to primary team's note. - Constitutional Vitals: Vital Signs Temp Pulse Resp BP Pulse Ox 97.9 F 78 16 154/104 100 09/01/20 12:03 09/01/20 14:47 09/01/20 14:47 09/01/20 12:03 09/01/20 14:49 Temperature -Last 24 Hours Temperature 97.9 F Temperature 98.2 F Temperature 98.2 F - Labs CBC & Chem 7: 08/31/20 04:46 08/31/20 04:46 Labs: Abnormal lab results 08/31/20 Range/Units 23:06 POC Glucose 164 H (70-105) mg/dL
--- NOTE | 2020-09-01 19:16 | Progress Note ---
Assessment and Plan Acute respiratory failure with hypoxia - secondary to COVID-19 pneumonia - Chest x-ray: Mild patchy multifocal airspace disease -Positive for COVID-19, started definite treatment for COVID-19, consulted ID -Monitor oxygen saturation and continue supplemental O2 to keep O2 sat greater than 94% COVID-19 virus infection, Atypical pneumonia with COVID-19 -Started on dexamethasone 6 mg p.o. for 10 days -Ordered for remdesivir to total 5 days course -ID consulted, continue to follow inflammatory markers Diabetes mellitus type 2 -Consistent carb diet and sliding scale of insulin Morbidly obese -Dietary and exercise recommendation when medically stable DVT prophylaxis, per Covid protocol 08/31: Patient is Covid positive for Covid, ID consulted -started on dexamethasone and remdesivir. Continue to follow inflammatory markers. 09/01: Day 2 of remdesivir, continue to follow inflammatory markers. Wean off from O2 as tolerated. If inflammatory markers improved possible DC tomorrow Subjective Date of service: 09/01/20 Interval history: Patient seen and examined. Medical records and medication list reviewed. No acute event overnight noted by the RN. Patient complains of difficulty breathing on exertion and cough. Patient is t olerating diet. Discussed plan of care at bedside with patient. Objective - Exam Narrative Exam: GENERAL: well-developed morbidly obese -[place] female lying on bed appeared to be in no discomfort. HEENT: Normocephalic. Atraumatic. No conjunctival congestion or icterus. Patient has moist mucous membranes. NECK: Supple. Trachea midline. CHEST/LUNGS: Diminished breath sound auscultated bilaterally, breathing nonlab ored. HEART/CARDIOVASCULAR: Regular in rate and rhythm. S1 and S2 positive. ABDOMEN: Abdomen is soft, nontender. Patient has normal bowel sounds. SKIN: There is no rash. Warm and dry. NEURO: No focal motor deficit. Follows command. MUSCULOSKELETAL: No joint effusion or tenderness. EXTRIMITY: No edema, no cyanosis or clubbing. PSYCH: Cooperative. - Constitutional Vitals: Vital Signs - 12hr 09/01/20 09/01/20 09/01/20 09:14 09:17 12:03 Temperature 97.9 F Pulse Rate 89 Pulse Rate [ 80 Anterior Bilateral Throughout] Respiratory 24 Rate Respiratory 16 Rate [Anterior Bilateral Throughout] Blood Pressure 154/104 O2 Sat by Pulse 96 98 Oximetry 09/01/20 09/01/20 14:47 14:49 Temperature Pulse Rate Pulse Rate [ 78 Anterior Bilateral Throughout] Respiratory Rate Respiratory 16 Rate [Anterior Bilateral Throughout] Blood Pressure O2 Sat by Pulse 100 Oximetry - Labs CBC & Chem 7: 08/31/20 04:46 09/02/20 10:54 Labs: Abnormal lab results 08/31/20 09/01/20 Range/Units 23:06 18:15 POC Glucose 164 H 159 H (70-105) mg/dL HEART Score - HEART Score Troponin: Troponin T < 0.010 ng/mL (0.00-0.029) 08/29/20 23:13
[2020-09-01] MEDS: REMDESIVIR 100 MG in SODIUM CHLORIDE 0.9% 250ML 250 ML IV SCH (22:21)
[2020-09-01] MEDS: SODIUM CHLORIDE 0.9% 50 ML IVPB IV SCH (22:21)
[2020-09-02] MEDS: HEPARIN 5,000 UNIT/1 ML VIAL SUB-Q SCH ×2 (05:45→16:12)
[2020-09-02] MEDS: IPRATROPIUM/ALBUTEROL SULFATE 3 ML AMPUL.NEB IH SCH ×3 (07:10→15:22)
[2020-09-02] MEDS: BUDESONIDE 0.5 MG/2 ML NEBU IH SCH (08:29)
[2020-09-02] MEDS: ARFORMOTEROL 15 MCG/2 ML NEBU IH SCH (08:29)
[2020-09-02] MEDS: INSULIN LISPRO 100 UNIT/ML VIAL 3 mL SUB-Q SCH ×2 (09:39→12:56)
[2020-09-02] MEDS: SENNOSIDES 8.6 MG TAB PO SCH (09:50)
[2020-09-02] MEDS: ASCORBIC ACID 500 MG TAB PO SCH (09:50)
[2020-09-02] MEDS: DEXAMETHASONE 4 MG TAB PO SCH (09:51)
[2020-09-02] MEDS: ZINC SULFATE 220 MG CAP PO SCH (09:52)
[2020-09-02 11:39] LABS: Alanine Aminotransferase 41 units/L (7-56); Albumin 3.3 g/dL (3.9-5); Blood Urea Nitrogen 10 mg/dL (7-17); Calcium 8.4 mg/dL (8.4-10.2); Hemolysis Index 5
[2020-09-02 11:43] LABS: BUN/Creatinine Ratio 25; Bilirubin,Direct < 0.2 mg/dL (0-0.2)
--- NOTE | 2020-09-02 13:08 | Progress Note ---
Assessment and Plan Cultures: Blood culture 08/30/2020 pending COVID-19 positive A/P: 35-year-old female past medical history diabetes, morbid obesity admitted with COVID-19 pneumonia. #COVID-19 pneumonia: 3 days of symptoms, currently a remdesivir candidate. #Acute hypoxemic respiratory failure: Likely secondary to COVID-19 infection. Currently on 2 L nasal cannula #Diabetes: tight glycemic control for best outcomes. #Morbid obesity: Associated with worse COVID-19 outcomes. Recs: -Continue dexamethasone for 10 days -Start Remdesivir 200 mg IV q day x 1 followed by 100 mg IV q day x 4 days. Follow renal and hepatic function while receiving. Day 4 of 5 -No need to stay to complete 5-day course of remdesivir if improved, okay to discharge whenever stable from a respiratory standpoint. -Anticoagulation per hospital protocol -Proning as able. Thank you for the consult, we will continue to follow. Margot Salmon MD [facility] [place] ([facility]) O: [phone] F: [phone] Subjective Date of service: 09/02/20 Interval history: Afebrile, no acute changes. Currently on 2 L nasal cannula. Objective - Exam Narrative Exam: Physical exam deferred due to PPE conservation strategy. Please refer to primary team's note. - Constitutional Vitals: Vital Signs Temp Pulse Resp BP Pulse Ox 97.5 F L 69 18 129/77 99 09/02/20 04:53 09/02/20 08:30 09/02/20 08:30 09/02/20 04:53 09/02/20 08:32 Temperature -Last 24 Hours Temperature 97.5 F Temperature 97.8 F Temperature 97.9 F - Labs CBC & Chem 7: 08/31/20 04:46 09/02/20 10:54 Labs: Abnormal lab results 09/01/20 09/01/20 09/02/20 Range/Units 18:15 21:56 10:54 Creatinine 0.4 L (0.6-1.2) mg/dL Glucose 158 H (65-100) mg/dL POC Glucose 159 H 175 H (70-105) mg/dL Albumin 3.3 L (3.9-5) g/dL 09/02/20 Range/Units 11:21 Creatinine (0.6-1.2) mg/dL Glucose (65-100) mg/dL POC Glucose 138 H (70-105) mg/dL Albumin (3.9-5) g/dL
[2020-09-02] MEDS ORDERED: REMDESIVIR 100 MG in SODIUM CHLORIDE 0.9% 250ML 250 ML IV SCH (16:00)
--- NOTE | 2020-09-02 16:31 | Discharge Summary ---
Providers - Providers Date of Admission: 08/30/20 07:57 Date of discharge: 09/02/20 Attending physician: RACIEL SCOTT 08/30/20 07:41 Consult to Physician [CONS] Routine Comment: Consulting Provider: MAURILIO GIBBS Physician Instructions: Reason For Exam: suspected COVID19 [facility] Condition: Stable Hospital course: Discharge diagnosis: Acute respiratory failure with hypoxia - secondary to COVID-19 pneumonia - Chest x-ray: Mild patchy multifocal airspace disease -Positive for COVID-19, started definite treatment for COVID-19, consulted ID -Monitor oxygen saturation and continue supplemental O2 to keep O2 sat greater than 94% COVID-19 virus infection, Atypical pneumonia with COVID-19 -Started on dexamethasone 6 mg p.o. for 10 days -Ordered for remdesivir to total 5 days course -ID consulted, continue to follow inflammatory markers Diabetes mellitus type 2 -Consistent carb diet and sliding scale of insulin Morbidly obese -Dietary and exercise recommendation when medically stable DVT prophylaxis, per Covid protocol Disposition: - TO HOME OR SELFCARE Time spent for discharge: 34 minutes Core Measure Documentation - Palliative Care Palliative Care/ Comfort Measures: Not Applicable - Core Measures Any of the following diagnoses?: none Exam - Physical Exam Narrative exam: GENERAL: well-developed morbidly obese -[place] female lying on bed appeared to be in no discomfort. HEENT: Normocephalic. Atraumatic. No conjunctival congestion or icterus. Patient has moist mucous membranes. NECK: Supple. Trachea midline. CHEST/LUNGS: Diminished breath sound auscultated bilaterally, breathing nonlabored. HEART/CARDIOVASCULAR: Regular in rate and rhythm. S1 and S2 positive. ABDOMEN: Abdomen is soft, nontender. Patient has normal bowel sounds. SKIN: There is no rash. Warm and dry. NEURO: No focal motor deficit. Follows command. MUSCULOSKELETAL: No joint effusion or tenderness. EXTRIMITY: No edema, no cyanosis or clubbing. PSYCH: Cooperative. - Constitutional Vitals: Temp Pulse Resp BP Pulse Ox 97.8 F 67 20 129/83 99 09/02/20 11:21 09/02/20 15:22 09/02/20 15:22 09/02/20 11:21 09/02/20 11:21 Plan Activity: advance as tolerated Weight Bearing Status: Weight Bear as Tolerated Diet: low fat, low salt Follow up with: EUGENIA CHILDS MD [Primary Care Provider] - 3-5 Days MAURILIO GIBBS MD [Staff Physician] - 7 Days Prescriptions: dexAMETHasone [Decadron] 6 mg PO DAILY #7 tablet ALBUTEROL NEB's [Proventil 0.083% NEBS] 2.5 mg IH TID PRN #30 PRN Reason: Wheezing Ascorbic Acid [Vitamin C] 1,000 mg PO BID #14 tablet Zinc Sulfate 220 mg PO QDAY #14 capsule
[2020-09-02 19:53] VITALS: BP 132/77
== END 2020-09-02 19:26 | disposition home or self-care (01) | DRG 177 ==
LOC: ED 22:42 → 3A 08-30 07:57
PROVIDERS: ADMIT Internal Medicine; ATTEND Internal Medicine
PROC: 4A033R1 Measurement of Arterial Saturation, Peripheral, Percutaneous Approach (ICD-10-PCS; principal; 2020-08-30)
PROC: XW033E5 Introduction of Remdesivir Anti-infective into Peripheral Vein, Percutaneous Approach, New Technology Group 5 (ICD-10-PCS; 2020-08-30)
DX: U07.1 COVID-19 (principal); J12.89 Other viral pneumonia; J96.01 Acute respiratory failure with hypoxia; Z68.43 Body mass index [BMI] 50.0-59.9, adult; E66.01 Morbid (severe) obesity due to excess calories; J20.9 Acute bronchitis, unspecified; E11.9 Type 2 diabetes mellitus without complications; Z79.899 Other long term (current) drug therapy
CPT/HCPCS: 36415; 36600; 71046; 71275; 80048; 80053; 80076; 82728; 82803; 82962; 83036; 83615; 83880; 84145; 84484; 84703; 85025; 85379; 86140; 86850; 86900; 86901; 87040; 93005; 94640; 94760; G0378; J0456; J0696; J1100; J1644; J7050; J8540; Q9967; U0003

== ENCOUNTER 2021-06-27 18:06 | Emergency (ER) | payer OTHER ==
[2021-06-27] MEDS ORDERED: SODIUM CHLORIDE 0.9% 1000 ML 1,000 ML IV ONE (20:11)
[2021-06-27] MEDS ORDERED: FAMOTIDINE 20 MG/2 ML INJ IV ONE (20:11)
[2021-06-27] MEDS ORDERED: METOCLOPRAMIDE 10 MG/2 ML INJ IV ONE (20:11)
[2021-06-27] MEDS ORDERED: diphenhydrAMINE 50 MG/ML VIAL IV ONE (20:11)
[2021-06-27 21:00] LABS: Hematocrit 35.1 % (30.3-42.9); Hemoglobin 11.2 gm/dl (10.1-14.3); Mean Corpuscular HGB Conc 32 % (30-34); Platelet Count 444 K/mm3 (140-440); Red Blood Count 5.33 M/mm3 (3.65-5.03)
[2021-06-27 21:07] LABS: Mean Corpuscular Volume 66 fl (79-97); Red Cell Distribution Width 20.7 % (13.2-15.2)
[2021-06-27 21:12] LABS: Alanine Aminotransferase 19 units/L (7-56); Albumin 3.8 g/dL (3.9-5); Blood Urea Nitrogen 12 mg/dL (7-17); Calcium 9.4 mg/dL (8.4-10.2); Hemolysis Index 0
[2021-06-27 21:22] LABS: BUN/Creatinine Ratio 30
[2021-06-27 21:30] LABS: Bilirubin,Urine NEG (Negative); Blood,Urine SM (Negative); Color,Urine Yellow (Yellow); Mucus,Urine FEW /HPF; Protein,Urine <15 mg/dL mg/dL (Negative); RBC,Urine < 1.0 /HPF (0.0-6.0); Urobilinogen,Urine < 2.0 mg/dL (<2.0)
--- NOTE | 2021-06-27 22:32 | Emergency Department Report ---
ED Abdominal Pain HPI - General Chief Complaint: Abdominal Pain Stated Complaint: LO PELVIC PAIN Time Seen by Provider: 06/27/21 20:10 Source: patient Mode of arrival: Ambulatory Limitations: No Limitations - History of Present Illness Initial Comments: This is a 36-year-old male nontoxic, well nourished in appearance, no acute signs of distress presents to the ED with c/o of nausea and abdominal pain several days. Patient denies any vomiting. Patient describes abdominal pain as cramping and aching with level of 8/10 primarily to upper abdomen area. Patient denies chest pain, short of breath, fever, hemoptysis, blood in stool, chills, headache, stiff neck, numbness or tingling. Patient denies any diarrhea or constipation. Denies any blood in stool. Patient denies any recent travels. Patient denies any allergies. MD Complaint: abdominal pain -: days(s) Location: LUQ, RUQ Radiation: none Migration to: no migration Severity: mild Severity scale (0 -10): 8 Quality: cramping, aching Consistency: constant Improves With: nothing Worsens With: nothing Associated Symptoms: nausea. denies: vomiting, diarrhea, fever, chills, constipation, dysuria, hematemesis, hematochezia, melena, hematuria, anorexia, syncope - Related Data Home Medications Medication Instructions Recorded Confirmed Last Taken metFORMIN [Glucophage] 500 mg PO BID 08/31/20 08/31/20 Unknown Previous Rx's Medication Instructions Recorded Last Taken Type ALBUTEROL NEB's [Proventil 0.083% 2.5 mg IH TID PRN #30 09/02/20 Unknown Rx NEBS] Ascorbic Acid [Vitamin C] 1,000 mg PO BID #14 tablet 09/02/20 Unknown Rx Zinc Sulfate 220 mg PO QDAY #14 capsule 09/02/20 Unknown Rx dexAMETHasone [Decadron] 6 mg PO DAILY #7 tablet 09/02/20 Unknown Rx Ondansetron [Zofran Odt] 4 mg PO Q12H PRN #12 tab.rapdis 06/27/21 Unknown Rx Allergies Allergy/AdvReac Type Severity Reaction Status Date / Time No Known Allergies Allergy Unverified 06/27/21 18:22 ED Review of Systems ROS: Stated complaint: LO PELVIC PAIN Other details as noted in HPI Comment: All other systems reviewed and negative Constitutional: denies: chills, fever Eyes: denies: eye pain, eye discharge, vision change ENT: denies: ear pain, throat pain Respiratory: denies: cough, shortness of breath, wheezing Cardiovascular: denies: chest pain, palpitations Endocrine: no symptoms reported Gastrointestinal: abdominal pain, nausea. denies: vomiting, diarrhea, constipation, hematemesis, melena, hematochezia Genitourinary: denies: urgency, dysuria, discharge Musculoskeletal: denies: back pain, joint swelling, arthralgia Skin: denies: rash, lesions Neurological: denies: headache, weakness, paresthesias Psychiatric: denies: anxiety, depression Hematological/Lymphatic: denies: easy bleeding, easy bruising ED Past Medical Hx - Past Medical History Hx Hypertension: Yes Hx Diabetes: Yes (type 2) Hx Sickle Cell Disease: Yes (sickle cell trait) Hx Arthritis: Yes Hx Asthma: Yes - Social History Smoking Status: Never Smoker - Medications Home Medications: Home Medications Medication Instructions Recorded Confirmed Last Taken Type metFORMIN [Glucophage] 500 mg PO BID 08/31/20 08/31/20 Unknown History ALBUTEROL NEB's [Proventil 0.083% 2.5 mg IH TID PRN #30 09/02/20 Unknown Rx NEBS] Ascorbic Acid [Vitamin C] 1,000 mg PO BID #14 tablet 09/02/20 Unknown Rx Zinc Sulfate 220 mg PO QDAY #14 capsule 09/02/20 Unknown Rx dexAMETHasone [Decadron] 6 mg PO DAILY #7 tablet 09/02/20 Unknown Rx Ondansetron [Zofran Odt] 4 mg PO Q12H PRN #12 tab.rapdis 06/27/21 Unknown Rx ED Physical Exam - General Limitations: No Limitations General appearance: alert, in no apparent distress - Head Head exam: Present: atraumatic, normocephalic - Eye Eye exam: Present: normal appearance - Neck Neck exam: Present: normal inspection, full ROM. Absent: lymphadenopathy - Respiratory Respiratory exam: Present: normal lung sounds bilaterally. Absent: respiratory distress, wheezes, rales, rhonchi, stridor, chest wall tenderness, accessory muscle use, decreased breath sounds, prolonged expiratory - Cardiovascular Cardiovascular Exam: Present: regular rate, normal rhythm, normal heart sounds. Absent: irregular rhythm, systolic murmur, diastolic murmur, rubs, gallop - GI/Abdominal GI/Abdominal exam: Present: soft, tenderness (diffuse upper abdominal only. no tendernes to lower abdomen), normal bowel sounds. Absent: distended, guarding, rebound, rigid, diminished bowel sounds - Extremities Exam Extremities exam: Present: normal inspection, full ROM - Back Exam Back exam: Present: normal inspection, full ROM. Absent: tenderness, CVA tenderness (R), CVA tenderness (L), muscle spasm, paraspinal tenderness, vertebral tenderness, rash noted - Neurological Exam Neurological exam: Present: alert, oriented X3, normal gait - Psychiatric Psychiatric exam: Present: normal affect, normal mood - Skin Skin exam: Present: warm, dry, intact, normal color. Absent: rash ED Course Vital Signs 06/27/21 18:20 Temperature 99.1 F Pulse Rate 102 H Respiratory 16 Rate Blood Pressure 140/89 [Left] O2 Sat by Pulse 96 Oximetry - Reevaluation(s) Reevaluation #1: 06/27/21 22:33 Patient is speaking in full sentences with no signs of distress noted. ED Medical Decision Making - Lab Data Result diagrams: 06/27/21 20:21 06/27/21 20:21 Lab Results 06/27/21 06/27/21 06/27/21 Range/Units 20:21 20:21 20:21 WBC 14.3 H (4.5-11.0) K/mm3 RBC 5.33 H (3.65-5.03) M/mm3 Hgb 11.2 (10.1-14.3) gm/dl Hct 35.1 (30.3-42.9) % MCV 66 L (79-97) fl MCH 21 L (28-32) pg MCHC 32 (30-34) % RDW 20.7 H (13.2-15.2) % Plt Count 444 H (140-440) K/mm3 Lymph # (Auto) Health And Safety Advisor Sodium 139 (137-145) mmol/L Potassium 4.5 (3.6-5.0) mmol/L Chloride 101.3 (98-107) mmol/L Carbon Dioxide 25 (22-30) mmol/L Anion Gap 17 mmol/L BUN 12 (7-17) mg/dL Creatinine 0.4 L (0.6-1.2) mg/dL Estimated GFR > 60 ml/min BUN/Creatinine Ratio 30 % Glucose 82 (65-100) mg/dL Calcium 9.4 (8.4-10.2) mg/dL Total Bilirubin < 0.20 (0.1-1.2) mg/dL AST 15 (5-40) units/L ALT 19 (7-56) units/L Alkaline Phosphatase 119 (35-129) units/L Total Protein 7.3 (6.3-8.2) g/dL Albumin 3.8 L (3.9-5) g/dL Albumin/Globulin Ratio 1.1 % Lipase 35 (13-60) units/L HCG, Qual Negative (Negative) Urine Color (Yellow) Urine Turbidity (Clear) Urine pH (5.0-7.0) Ur Specific [place] (1.003-1.030) Urine Protein (Negative) mg/dL Urine Glucose (UA) (Negative) mg/dL Urine Ketones (Negative) mg/dL Urine Blood (Negative) Urine Nitrite (Negative) Urine Bilirubin (Negative) Urine Urobilinogen (<2.0) mg/dL Ur Leukocyte Esterase (Negative) Urine WBC (Auto) (0.0-6.0) /HPF Urine RBC (Auto) (0.0-6.0) /HPF U Epithel Cells (Auto) (0-13.0) /HPF Urine Mucus /HPF 06/27/21 Range/Units 21:11 WBC (4.5-11.0) K/mm3 RBC (3.65-5.03) M/mm3 Hgb (10.1-14.3) gm/dl Hct (30.3-42.9) % MCV (79-97) fl MCH (28-32) pg MCHC (30-34) % RDW (13.2-15.2) % Plt Count (140-440) K/mm3 Lymph # (Auto) Sodium (137-145) mmol/L Potassium (3.6-5.0) mmol/L Chloride (98-107) mmol/L Carbon Dioxide (22-30) mmol/L Anion Gap mmol/L BUN (7-17) mg/dL Creatinine (0.6-1.2) mg/dL Estimated GFR ml/min BUN/Creatinine Ratio % Glucose (65-100) mg/dL Calcium (8.4-10.2) mg/dL Total Bilirubin (0.1-1.2) mg/dL AST (5-40) units/L ALT (7-56) units/L Alkaline Phosphatase (35-129) units/L Total Protein (6.3-8.2) g/dL Albumin (3.9-5) g/dL Albumin/Globulin Ratio % Lipase (13-60) units/L HCG, Qual (Negative) Urine Color Yellow (Yellow) Urine Turbidity Slightly-cloudy (Clear) Urine pH 7.0 (5.0-7.0) Ur Specific [place] 1.010 (1.003-1.030) Urine Protein <15 mg/dl (Negative) mg/dL Urine Glucose (UA) Neg (Negative) mg/dL Urine Ketones Neg (Negative) mg/dL Urine Blood Sm (Negative) Urine Nitrite Neg (Negative) Urine Bilirubin Neg (Negative) Urine Urobilinogen < 2.0 (<2.0) mg/dL Ur Leukocyte Esterase Neg (Negative) Urine WBC (Auto) 1.0 (0.0-6.0) /HPF Urine RBC (Auto) < 1.0 (0.0-6.0) /HPF U Epithel Cells (Auto) 15.0 H (0-13.0) /HPF Urine Mucus Few /HPF - Radiology Data [facility] [address] [place] [address] Cat Scan Report Signed Patient: SINA CAMACHO MR#: [id number] : [birth year] Acct:[id number] Age/Sex: 36 / F ADM Date: 06/27/21 Loc: ED Attending Dr: Ordering Physician: CARINA KWAN NP Date of Service: 06/27/21 Procedure(s): CT abdomen pelvis w con Accession Number(s): [id number] cc: CARINA KWAN NP CT ABDOMEN AND PELVIS WITH CONTRAST INDICATION / CLINICAL INFORMA TION: abd pain. TECHNIQUE: Axial CT images were obtained through the abdomen and pelvis after 100 mm Omnipaque [address] scans at this location are performed using CT dose reduction for ALARA by means of automated exposure control. COMPARISON: None available. FINDINGS: LOWER CHEST: No significant abnormality. LIVER: Hepatomegaly. No focal liver lesion. GALLBLADDER: No significant abnormality. BILE DUCTS: No significant abnormality. PANCREAS: No significant abnormality. SPLEEN: No significant abnormality. ADRENALS: No significant abnormality. RIGHT KIDNEY / URETER: No significant abnormality. LEFT KIDNEY / URETER: No significant abnormality. STOMACH / SMALL BOWEL: No significant abnormality. COLON: No significant abnormality. APPENDIX: Not visualized. PERITONEUM: No free fluid. No free air. No fluid collection. LYMPH NODES: No significant adenopathy. AORTA / ARTERIES: No significant abnormality. IVC / VEINS: No significant abnormality. URINARY BLADDER: No significant abnor mality. REPRODUCTIVE ORGANS: No significant abnormality. ADDITIONAL FINDINGS: Small fat-containing umbilical hernia. SKELETAL SYSTEM: Degenerative changes. No aggressive osseous lesion. IMPRESSION: 1. No acute abnormality to account for patient's abdominal pain. 2. Hepatomegaly. 3. The appendix is not identified, although no inflammatory changes in the right lower quadrant. Signer Name: Chuck Burnett MD Signed: 06/27/2021 10:51 PM Workstation Name: [id number] Transcribed By: DB Dictated By: CHUCK BURNETT MD Electronically Authenticated By: CHUCK BURNETT MD Signed Date/Time: 06/27/212250 DD/ 46 TD/TT: - Medical Decision Making This is a 36-year-old female that presents with abdominal pain, hepatomegaly, nausea. Patient is stable and was examined by me. Negative signs of symptoms of appendicitis. Labs obtained. UA obtained. CT of abdomen obtained and dictated by the radiologist. Patient is notified of the report with no questions noted by the patient. Vital signs are stable prior to discharge. Patient received medical treatment in the ED which patient stated symptoms has resovled and subsided. Was instructed note to operate any machinery due to possible drowsiness and stated someone will drive the patient home. A by mouth challenge has been obtained and patient tolerated well with no nausea vomiting. Patient was notified of strict precatuions of appendictis symptoms and to return to the ED if symptoms occurs as soon as possible. Patient was also instructed to Follow-up with a primary care doctor in 3-5 days or if symptoms worsen and continue return to emergency room as soon as possible. At time of discharge, th e patient does not seem toxic or ill in appearance. No acute signs of distress noted. Patient agrees to discharge treatment plan of care. No further questions noted by the patient. Critical care attestation.: If time is entered above; I have spent that time in minutes in the direct care of this critically ill patient, excluding procedure time. ED Disposition Clinical Impression: Nausea, Hepatomegaly Abdominal pain Qualifiers: Abdominal location: upper abdomen, unspecified Qualified Code(s): R10.10 - Upper abdominal pain, unspecified Disposition: HOME / SELF CARE / HOMELESS Is pt being admited?: No Does the pt Need Aspirin: No Condition: Stable Instructions: Abdominal Pain (ED), Abdominal Pain, Adult, [id number] Additional Instructions: Follow-up with a primary care doctor in 3-5 days or if symptoms worsen and continue return to emergency room as soon as possible. Prescriptions: Ondansetron [Zofran Odt] 4 mg PO Q12H PRN #12 tab.rapdis PRN Reason: Nausea Referrals: PRIMARY CARE, [Referring] - 3-5 Days WEI FELTON MD [Staff Physician] - 3-5 Days [facility] [Provider Group] - 3-5 Days Forms: Work/School Release Form(ED) Time of Disposition: 23:17
--- NOTE | 2021-06-27 22:55 | Cat Scan Report ---
CT ABDOMEN AND PELVIS WITH CONTRAST INDICATION / CLINICAL INFORMATION: abd pain. TECHNIQUE: Axial CT images were obtained through the abdomen and pelvis after 100 mm Omnipaque [address] scans at this location are performed using CT dose reduction for ALARA by means of automated exposure control. COMPARISON: None available. FINDINGS: LOWER CHEST: No significant abnormality. LIVER: Hepatomegaly. No focal liver lesion. GALLBLADDER: No significant abnormality. BILE DUCTS: No significant abnormality. PANCREAS: No significant abnormality. SPLEEN: No significant abnormality. ADRENALS: No significant abnormality. RIGHT KIDNEY / URETER: No significant abnormality. LEFT KIDNEY / URETER: No significant abnormality. STOMACH / SMALL BOWEL: No significant abnormality. COLON: No significant abnormality. APPENDIX: Not visualized. PERITONEUM: No free fluid. No free air. No fluid collection. LYMPH NODES: No significant adenopathy. AORTA / ARTERIES: No significant abnormality. IVC / VEINS: No significant abnormality. URINARY BLADDER: No significant abnormality. REPRODUCTIVE ORGANS: No significant abnormality. ADDITIONAL FINDINGS: Small fat-containing umbilical hernia. SKELETAL SYSTEM: Degenerative changes. No aggressive osseous lesion. IMPRESSION: 1. No acute abnormality to account for patient's abdominal pain. 2. Hepatomegaly. 3. The appendix is not identified, although no inflammatory changes in the right lower quadrant. Signer Name: Chuck Burnett MD Signed: 06/27/2021 10:51 PM Workstation Name: [id number]
[2021-06-28 00:21] VITALS: BP 129/88
[2021-06-28 01:29] LABS: Anisocytosis 1+; Hypochromasia 2+; Total Cells Counted 100
[2021-06-28 01:30] LABS: Platelet Estimate Consistent w Auto
== END 2021-06-28 00:23 | disposition home or self-care (01) ==
LOC: ED 18:06
DX: R16.0 Hepatomegaly, not elsewhere classified (principal); R10.11 Right upper quadrant pain; R10.12 Left upper quadrant pain; R11.0 Nausea; I10 Essential (primary) hypertension; E11.9 Type 2 diabetes mellitus without complications; M19.90 Unspecified osteoarthritis, unspecified site; J45.909 Unspecified asthma, uncomplicated; Z79.899 Other long term (current) drug therapy
CPT/HCPCS: 36415; 74177; 80053; 81001; 83690; 84703; 85007; 85025; 96361; 96374; 96375; 99284; J1200; J2765; J7030; Q9967